=== PATIENT | female | born 1975 | race Caucasian/White ===

== ENCOUNTER → 2016-06-27 | Outpatient (CLI) | payer OTHER ==
--- NOTE | 2016-06-27 10:53 | MA ---
Screening Digital Mammogram Clinical Indications: Routine screening. Technique: Standard cephalocaudal and mediolateral oblique projections are obtained. This examinati on is processed by the [employer] computer aided detection system. Comparison: May 2015 and October 2010 (right) Breast density: B; There are scattered fibroglandular densities. Findings: CAD was reviewed. No suspicious findings are identified. Impression: Negative mammogram. . BI-RADS 1. Recommendation: Routine screening is recommended in one year. [facility] will send a result letter to the patient. Negative mammography should not preclude additional workup of a clinically suspicious finding. The patient's information is entered into a reminder system with a target due date for her next mammo gram.
== END ==
LOC: BMCIMAGING 09:41
DX: Z12.31 Encounter for screening mammogram for malignant neoplasm of breast (principal)
CPT/HCPCS: G0202

== ENCOUNTER → 2017-02-08 | Outpatient (CLI) | payer OTHER | LOC: FIMAGING 09:34 | PROVIDERS: ATTEND Obstetrics & Gynecology | DX: N92.0 Excessive and frequent menstruation with regular cycle (principal) ==

== ENCOUNTER 2017-08-27 12:26 | Observation (INO) | payer OTHER ==
[2017-08-27] MEDS ORDERED: IBUPROFEN 600 MG TAB PO ONE (13:07)
--- NOTE | 2017-08-27 13:15 | EDPHY ---
H & P Time Seen by Provider: 08/27/17 13:14 HPI/ROS: Chief complaint. Syncope, vaginal bleeding HPI. 41-year-old female here by 911. She had a scheduled D and C for a 10 week termination of this morning. She was feeling well prior to the D and C. Apparently the geriatric case manager told her that was a difficult D&C and that there was placental tissue that could not be detached. The patient felt fine afterwards and had only slight light bleeding. About an hour and half later she was at home passed a large clot and then large gush gush of blood. She was lightheaded and laid on the bathroom floor and had to crawl to the porch to call 911. She possibly lost consciousness briefly. She had no chest pain or shortness of breath. She has continued to have large vaginal bleeding with 2 episodes in the emergency department. She has lower abdominal cramping and pain. Patient is 4/para 3, AB1 ROS Constitutional. Generalized weakness Eyes. no problems with vision ENT. no sore throat, no nasal drainage Cardiovascular. no chest pain Respiratory. no shortness of breath, no cough Abdominal. Lower abdominal pain and vaginal bleeding . no problems urinating MS. no calf pain/swelling, no neck/back pain, no joint pain Skin. no rash Lymph. no swollen glands Neuro. Syncope Past Medical/Surgical History: D&C, dental surgery, SVT Social History: , nonsmoker, no alcohol Smoking Status: Never smoked Physical Exam: General Appearance: Alert pleasant well-developed female moderate distress vital signs are stable Eyes: Pupils equal and round no pallor or injection. ENT, Mouth: Mucous membranes are moist. Respiratory: There are no retractions, lungs are clear to auscultation. Cardiovascular: Regular rate and rhythm. Gastrointestinal: Abdomen is soft with suprapubic tenderness. It feels that the bladder uterus area is quite firm and tender. It is also painful to palpation Neurological: Awake and alert, sensory and motor exams grossly normal. Skin: Warm and dry, no rashes. Musculoskeletal: Neck is supple nontender. Extremities symmetrical, full range of motion. Psychiatric: Patient is oriented X 3, there is no agitation. Constitutional: Initial Vital Signs Temperature (C) 36.8 C 08/27/17 12:28 Heart Rate 80 08/27/17 12:28 Respiratory Rate 18 08/27/17 12:28 Blood Pressure 114/69 08/27/17 12:28 O2 Sat (%) 100 08/27/17 12:28 O2 Delivery Mode Room Air Allergies/Adverse Reactions: hydrocodone Allergy (Verified 08/27/17 15:42) Other-Enter Comments Penicillins Allergy (Verified 08/27/17 15:42) Hives Home Medications: Medication Instructions Recorded NK [No Known Home Meds] 06/20/14 Medical Decision Making - Diagnostics Imaging Results: Imaging Impressions Pelvic/Renal Ultrasound 08/27/17 13:37 Impression: 1. Diffusely heterogenous abnormal endometrial thickening up to 7 x 7 cm likely representing nonvascular hemorrhage. 2. No definite vascular retained products of conception. 3. Ovaries not identified. Findings and recommendations discussed with Emergency Department physician, Mark Leone at 1455 hour, 08/27/2017. Final report concurs with initial preliminary interpretation. Ultrasound showed a heterogeneous abnormal endometrial thickening up to 7 cm thick. Likely representing hemorrhage. Procedures: IV normal saline, monitor. Blood work and type and screen. ED Course/Re-evaluation: I have consulted and discussed the case with Dr. Fournier twice for OBGYN. She does not have privileges at [facility]. She requests that I call Dr. Swanson who is the director business management software test automation engineer. Repeat H&H is pending. Repeat crit is 30.2. Dr. Fournier sees the patient in the emergency department. I consulted and discussed the case with Dr. Swanson who agrees to the admission and asked the patient be admitted to labor and agree. Differential Diagnosis: Patient a D and C this morning and this having vaginal bleeding with significant blood loss and declining hematocrit. Ultrasound shows a very thick endometrium that requires another D and C. The cause of this is not clear to me currently. - Data Points Laboratory Results: Laboratory Results 08/27/17 14:42 08/27/17 12:25 08/27/17 08/27/17 08/27/17 14:42 13:28 12:25 WBC 14.51 10^3/uL H 10^3/uL (3.80-9.50) RBC 3.22 10^6/uL L 10^6/uL (4.18-5.33) Hgb 10.5 g/dL L g/dL (12.6-16.3) Hct 30.2 % L % (38.0-47.0) MCV 93.8 fL fL (81.5-99.8) MCH 32.6 pg pg (27.9-34.1) MCHC 34.8 g/dL g/dL (32.4-36.7) RDW 12.7 % % (11.5-15.2) Plt Count 185 10^3/uL 10^3/uL (150-400) MPV 10.9 fL fL (8.7-11.7) Neut % (Auto) 86.1 % H % (39.3-74.2) Lymph % (Auto) 8.5 % L % (15.0-45.0) [place] % (Auto) 4.8 % % (4.5-13.0) Eos % (Auto) 0.1 % L % (0.6-7.6) Baso % (Auto) 0.1 % L % (0.3-1.7) Nucleat RBC Rel Count 0.0 % % (0.0-0.2) Absolute Neuts (auto) 12.48 10^3/uL H 10^3/uL (1.70-6.50) Absolute Lymphs (auto) 1.24 10^3/uL 10^3/uL (1.00-3.00) Absolute Monos (auto) 0.70 10^3/uL 10^3/uL (0.30-0.80) Absolute Eos (auto) 0.01 10^3/uL L 10^3/uL (0.03-0.40) Absolute Basos (auto) 0.02 10^3/uL 10^3/uL (0.02-0.10) Absolute Nucleated RBC 0.00 10^3/uL 10^3/uL (0-0.01) Immature Gran % 0.4 % % (0.0-1.1) Immature Gran # 0.06 10^3/uL 10^3/uL (0.00-0.10) PT INR APTT Sodium 136 mEq/L mEq/L (135-145) Potassium 3.9 mEq/L mEq/L (3.5-5.2) Chloride 104 mEq/L mEq/L (97-110) Carbon Dioxide 23 mEq/l mEq/l (22-31) Anion Gap 9 mEq/L mEq/L (8-16) BUN 7 mg/dL mg/dL (7-23) Creatinine 0.5 mg/dL L mg/dL (0.6-1.0) Estimated GFR > 60 Glucose 66 mg/dL L mg/dL (70-100) Calcium 8.8 mg/dL mg/dL (8.5-10.4) Patient ABO/Rh O POSITIVE Antibody Screen NEGATIVE 08/27/17 08/27/17 12:25 12:25 WBC 11.41 10^3/uL H 10^3/uL (3.80-9.50) RBC 3.74 10^6/uL L 10^6/uL (4.18-5.33) Hgb 12.0 g/dL L g/dL (12.6-16.3) Hct 35.0 % L % (38.0-47.0) MCV 93.6 fL fL (81.5-99.8) MCH 32.1 pg pg (27.9-34.1) MCHC 34.3 g/dL g/dL (32.4-36.7) RDW 12.9 % % (11.5-15.2) Plt Count 199 10^3/uL 10^3/uL (150-400) MPV 10.9 fL fL (8.7-11.7) Neut % (Auto) 78.1 % H % (39.3-74.2) Lymph % (Auto) 15.2 % % (15.0-45.0) [place] % (Auto) 5.7 % % (4.5-13.0) Eos % (Auto) 0.3 % L % (0.6-7.6) Baso % (Auto) 0.3 % % (0.3-1.7) Nucleat RBC Rel Count 0.0 % % (0.0-0.2) Absolute Neuts (auto) 8.92 10^3/uL H 10^3/uL (1.70-6.50) Absolute Lymphs (auto) 1.74 10^3/uL 10^3/uL (1.00-3.00) Absolute Monos (auto) 0.65 10^3/uL 10^3/uL (0.30-0.80) Absolute Eos (auto) 0.03 10^3/uL 10^3/uL (0.03-0.40) Absolute Basos (auto) 0.03 10^3/uL 10^3/uL (0.02-0.10) Absolute Nucleated RBC 0.00 10^3/uL 10^3/uL (0-0.01) Immature Gran % 0.4 % % (0.0-1.1) Immature Gran # 0.04 10^3/uL 10^3/uL (0.00-0.10) PT 14.6 SEC SEC (12.0-15.0) INR 1.12 (0.83-1.16) APTT 25.1 SEC SEC (23.0-38.0) Sodium Potassium Chloride Carbon Dioxide Anion Gap BUN Creatinine Estimated GFR Glucose Calcium Patient ABO/Rh Antibody Screen Medications Given: Discontinued Medications Sodium Chloride (Ns) 1,000 mls @ 0 mls/hr IV EDNOW ONE; Wide Open PRN Reason: Protocol Stop: 08/27/17 13:17 Last Admin: 08/27/17 13:49 Dose: 1,000 mls Ibuprofen (Motrin) 600 mg PO EDNOW ONE Stop: 08/27/17 13:08 Last Admin: 08/27/17 13:13 Dose: 600 mg Departure - Departure Disposition: [facility] Acute Clinical Impression: Vaginal bleeding Condition: Fair
[2017-08-27] MEDS ORDERED: NS 1,000 ML IV ONE (13:16)
[2017-08-27 13:23] LABS: PLATELET COUNT 199 10^3/uL (150-400)
[2017-08-27 13:29] LABS: INR 1.12 (0.83-1.16); PROTIME(PATIENT) 14.6 SEC (12.0-15.0)
[2017-08-27 15:21] LABS: PLATELET COUNT 185 10^3/uL (150-400)
[2017-08-27 17:21] VITALS: PULSE 71
[2017-08-27] MEDS ORDERED: MISOPROSTOL 200 MCG TAB ONE (17:48)
[2017-08-27] MEDS: LR 1,000 ML IV SCH (18:11)
[2017-08-27] MEDS: MISOPROSTOL 200 MCG TAB PO PRN (18:29)
[2017-08-27] MEDS ORDERED: fentaNYL 100 MCG/2 ML INJ IVP PRN (18:55)
[2017-08-27] MEDS: ONDANSETRON 4 MG/2 ML VIAL IVP PRN ×2 (19:01→23:50)
[2017-08-27] MEDS: fentaNYL 100 MCG/2 ML INJ IVP PRN ×2 (20:25→23:25)
--- NOTE | 2017-08-27 21:59 | GHP ---
[f rep st] PREOP HISTORY AND PHYSICAL DATE OF ADMISSION: 08/27/2017 HISTORY UPON PRESENTATION: The patient is a 41-year-old white female who was admitted through the em ergency room due to increased pain with heavy bleeding and near-syncopal event, status post an electi ve termination of a at 10 weeks' gestation done by [facility] earlier this morn ing in their office. The patient reports that the procedure by Dr. Sherman lasted approximately 45 min utes with excessive suctioning and manipulation because the patient was told that her cervix was so o pen that Dr. Sherman had difficulty having the suction machine work. The patient then was felt to be s table and was discharged home after which she began having heavy bleeding and significant pain. She was near-syncopal and presented to the emergency room. The patient was watched for several hours dur ing which time her hematocrit fell from 35% down to 30%. The patient had an ultrasound performed maria g t showed a 7 cm thickened endometrial cavity with heterogeneous tissue with no obvious retained produ cts of conception, however, difficult to totally rule out versus organized clot. There was no free f luid. The patient was hemodynamically stable but did have several episodes of very heavy bleeding. The patient was admitted to Labor and Delivery for possible D and C. The patient is thoroughly couns eled about the potential for a small amount of retained tissue causing persistent bleeding versus a l ow-toned uterus that is just harboring bigger clots. The patient is advised that a repeat D and C is most efficiently going to remove the clot and assess for any retained tissue. However, it does agai n pose a potential risk for scarring in the uterus with low risk of Asherman syndrome. The patient d oes not desire future fertility. She is concerned by the longer procedure this morning and the risk from that. The patient is given additional option of using Cytotec to try to help her uterus pass th e clot/tissue and improve the uterine tone. The patient did use Cytotec to resolve a missed AB with 1 and was successful. The patient hopes to stay in the hospital for pain management and pr oceed with trying the Cytotec. PAST MEDICAL HISTORY: The patient has a history of SVT for which she has had a cardiology consult an d is seeing Dr. Meeks. He has advised her to proceed with an ablation but has not done so. The patien t denies any other medical problems. PAST SURGICAL HISTORY: Only the above D and C this morning. PAST OBSTETRIC HISTORY: The patient had 3 vaginal deliveries of term healthy children ages 12; 10; a nd 7. The patient reports 3 losses with 2 spontaneous ABs in the 1st trimester and 1 pregn lam that was a missed AB that was managed with Cytotec with complete resolution. The patient had a 10-week intrauterine for which she was proceeding with an elective termination this morning . ALLERGIES: The patient has significant projectile vomiting with hydrocodone. Penicillin causes rash and vomiting and diarrhea. CURRENT MEDICATIONS: The patient had been doing vitamins. She also used doxycycline last n ight and this morning. She was given a Xanax this morning. No other long-term medications. SOCIAL HISTORY: The patient is and has a supportive with her here. She lives with h er 3 children. The patient is a nonsmoker. No alcohol or drug use. PHYSICAL EXAMINATION: GENERAL: Upon admission, the patient is a well-developed, well-nourished whit e female in minimal distress. The patient is describing pressure and cramping 4 to 5 out of 10. VIA L SIGNS: The patient's blood pressure is 109/67, temperature 36.7 upon admission to Labor and Delive . LUNGS: Clear to auscultation bilaterally. CARDIOVASCULAR: Regular rate and rhythm. ABDOMEN: Soft and only mildly tender. PELVIC: Not done initially upon admission to Labor and Delivery. EXT REMITIES: Nontender. No edema. ASSESSMENT: Bleeding and pain, status post an elective termination at 10 weeks with concern for murali ined clot versus retained products of conception. Anemia with heavy blood loss today. PLAN: We will proceed with 800 mcg of Cytotec every 3 hours with a max of 3 doses. The patient know s that she will have a strong intensity of pain and is offered IV narcotics versus nitrous. If the p atient does not have good results or is becoming unstable, she understands she might need to proceed with another D and C. /[id number]/MODL
[2017-08-27] MEDS: MISOPROSTOL 200 MCG TAB VG PRN (23:46)
--- NOTE | 2017-08-28 00:02 | SOAPPROG ---
SOAP Progress Note Assessment/Plan: Assessment: s/p TAB this am. bldr scant cont giving 800 mcg q 3 hrs to express change Plan: cont cytotec and pain meds throughtout. 08/27/17 23:58 Subjective: Pt having 7-8/10 pains. No bld essentially - did u/s and clot now 7x9 cms. Did hope of heavy bld. Disappointed cx closed Objective: Vital Signs Temp Pulse Resp BP Pulse Ox 38.2 C 71 16 107/59 L 98 08/27/17 23:16 08/27/17 16:59 08/27/17 23:16 08/27/17 23:16 08/27/17 20:00 08/26/17 08/27/17 08/28/17 05:59 05:59 05:59 Intake Total 1000 Balance 1000 PT 14.6 SEC (12.0-15.0) 08/27/17 12:25 INR 1.12 (0.83-1.16) 08/27/17 12:25 Physical Exam - Physical Exam General Appearance: WD/WN Abdomen: non-tender, soft Pelvic Exam: other (cx int os ft/50, no bld) ICD10 Worksheet Patient Problems: Problems Problem Status Onset Incomplete Acute Vaginal bleeding Acute
[2017-08-28] MEDS: ACETAMINOPHEN 500 MG TAB PO PRN ×2 (00:13→05:40)
[2017-08-28] MEDS: LR 1,000 ML IV SCH (01:42)
[2017-08-28] MEDS: fentaNYL 100 MCG/2 ML INJ IVP PRN ×2 (02:52→04:59)
[2017-08-28] MEDS: MISOPROSTOL 200 MCG TAB PO PRN (02:55)
[2017-08-28] MEDS: MISOPROSTOL 200 MCG TAB VG PRN (02:59)
[2017-08-28] MEDS ORDERED: AMMONIA AROMATIC 1 EACH AMP IH ONE (04:37)
[2017-08-28] MEDS: ONDANSETRON 4 MG/2 ML VIAL IVP PRN (04:43)
[2017-08-28] MEDS ORDERED: MISOPROSTOL 200 MCG TAB PO ONE (05:15)
--- NOTE | 2017-08-28 06:32 | SOAPPROG ---
SOAP Progress Note Assessment/Plan: Assessment: s/p TAB with retained tissue/clot Had good result of passage of large clot approx 5 am with light-headedness u/s shows much smaller clot area 2x3 cm - concern for small POCs approx 2 cm Plan: Pt wants to try 1 more dose of cytotec for cont tone of uterus - inadvertently took orally rather than SL CBC done shortly after clots and h/h dropped to 02/20....pt VS stable 08/27/17 23:58 08/28/17 06:28 Subjective: Pt feeling better and much less tenderness to uterus after passage of clots - almost no cramping..... large clot in toilet already flushed and smaller clots on chux. [place] release of clot and got up to BR and became lightheaded. U/S done and only residual 2x3 cm clot noted but in upper EC small fluid collection and 2 cm area concerning for RPOCs. pt stable now Objective: Vital Signs Temp Pulse Resp BP Pulse Ox 38.0 C 71 20 120/71 97 08/28/17 04:54 08/27/17 16:59 08/28/17 04:31 08/28/17 06:02 08/28/17 05:45 Laboratory Results 08/28/17 05:28 08/27/17 08/28/17 08/29/17 05:59 05:59 05:59 Intake Total 1000 Balance 1000 PT 14.6 SEC (12.0-15.0) 08/27/17 12:25 INR 1.12 (0.83-1.16) 08/27/17 12:25 Physical Exam - Physical Exam General Appearance: WD/WN, alert Abdomen: non-tender, soft Pelvic Exam: vaginal bleeding (light now, est large clot from toilet --?2-300 cc ) ICD10 Worksheet Patient Problems: Problems Problem Status Onset Incomplete Acute Vaginal bleeding Acute
--- NOTE | 2017-08-28 09:01 | PDANEPAE ---
ANE Past Medical History - Pulmonary History Hx Oxygen in Use at Home: No - Endocrine History Hx Diabetes: No ANE Review of Systems Review of Systems: ANE Patient History - Allergies Allergies/Adverse Reactions: hydrocodone Allergy (Verified 08/27/17 15:42) Other-Enter Comments Penicillins Allergy (Verified 08/27/17 15:42) Hives - Home Medications Home Medications: NK [No Known Home Meds] 06/20/14 [Last Taken Unknown] - NPO status NPO Since - Liquids (Date): 08/27/17 NPO Since - Liquids (Time): 16:00 NPO Since - Solids (Date): 08/27/17 NPO Since - Solids (Time): 10:00 - Smoking Hx Smoking Status: Never smoked ANE Labs/Vital Signs - Labs Result Diagrams: 08/28/17 05:28 08/27/17 12:25 - Vital Signs Blood Pressure: 98/57 Heart Rate: 71 Respiratory Rate: 20 O2 Sat (%): 97 Height: 165.1 cm Weight: 58.967 kg ANE Physical Exam - Airway Neck exam: FROM Mallampati Score: Class 1 Mouth exam: normal dental/mouth exam - Pulmonary Pulmonary: no respiratory distress - Cardiovascular Cardiovascular: regular rate and rhythym - ASA Status ASA Status: I ANE Anesthesia Plan Total IV Anesthesia: Yes
[2017-08-28] MEDS ORDERED: MIDAZOLAM 2 MG/2 ML VIAL ONE (09:03)
[2017-08-28] MEDS ORDERED: PROPOFOL/EMULSION 500 MG/50 ML BOTTLE IV ONE (09:04)
[2017-08-28] MEDS ORDERED: fentaNYL 100 MCG/2 ML INJ ONE (09:04)
[2017-08-28] MEDS ORDERED: ceFAZolin 2 GM in NS 100 ML IV ONE (09:04)
[2017-08-28] MEDS ORDERED: METOCLOPRAMIDE 10 MG/2 ML VIAL ONE (09:05)
[2017-08-28] MEDS ORDERED: LIDOCAINE 2% 100 MG/5 ML SYR ONE (09:05)
[2017-08-28] MEDS ORDERED: DEXAMETHASONE 4 MG/ML VIAL ONE (09:05)
[2017-08-28] MEDS ORDERED: ONDANSETRON 4 MG/2 ML VIAL ONE (09:05)
[2017-08-28 09:11] VITALS: RESP 18
[2017-08-28] MEDS ORDERED: ceFAZolin 2 GM/SWFI 2 GM/20 ML SYR IVP ONE (09:30)
--- NOTE | 2017-08-28 10:04 | POSTOPPROG ---
Post Op Note Date of Operation: 08/28/17 Surgeon: Florecita Guerra Anesthesiologist: Dr. Darrell Whatley Anesthesia: GET(General Endotracheal) Pre-op Diagnosis: incomplete Post-op Diagnosis: same Procedure: suction dilation and currettage under ultrasound guidance Inf/Abcess present in the surg proc area at time of surgery?: No Depth: Organ Space EBL: Minimal Complications: none Specimen(s): products of conception
[2017-08-28] MEDS ORDERED: ALBUTEROL 3 ML DEYVIAL IH PRN (10:15)
[2017-08-28] MEDS ORDERED: NALOXONE HCL 0.4 MG/ML INJ IVP PRN (10:15)
--- NOTE | 2017-08-28 10:19 | POSTANESTH ---
Post Anesthetic Evaluation Cardiovascular Status: Normal, Stable, Similar to Pre-Op Cond Respiratory Status: Similar to Pre-op Cond. Level of Consciousness/Mental Status: Mildly Sleepy, Arousable Pain Control: Adequate, Prn Tx Ordered Nausea/Vomiting Control: Adequate, Prn Tx Ordered Complications Possibly Related to Anesthesia: None Noted
[2017-08-28] MEDS ORDERED: IBUPROFEN 600 MG TAB PO SCH (12:00)
[2017-08-28 13:40] VITALS: BP 106/61; O2SAT 95
[2017-08-28 14:40] VITALS: TEMP 98.4
--- NOTE | 2017-08-28 16:39 | GOP ---
[f rep st] OPERATIVE REPORT DATE OF OPERATION: 08/28/2017 SURGEON: Florecita Guerra MD ANESTHESIA: General. ANESTHESIOLOGIST: Darrell Whatley MD. PREOPERATIVE DIAGNOSIS: Incomplete at 10 weeks. POSTOPERATIVE DIAGNOSIS: Incomplete at 10 weeks. PROCEDURE PERFORMED: Suction, dilation, and curettage under ultrasound guidance. FINDINGS: ESTIMATED BLOOD LOSS: For the procedure was less than 20 mL. DESCRIPTION OF PROCEDURE: Patient was taken to the operating room where she was placed under general anesthesia and placed in the dorsal lithotomy position. A transvaginal ultrasound performed under g eneral anesthesia revealed an area of tissue and possible gestational sac at the fundus with no obvio us large blood clot persisting. After WHO time-out was performed, an open-sided speculum was placed in the vagina, and an atraumatic tenaculum was used to grasp the anterior lip of the cervix. The [place] doni sounded to 11 cm. A #9 curved suction curette was gently advanced from the cervix to the fundus. Suction was applied and a large amount of tissue was obtained with a couple passes of the suction d evice. This was performed with transabdominal ultrasound guidance; the tissue was removed, and the e ndometrium was intact. Sharp curettage was then performed in a clockwise fashion, also under ultraso und guidance, until a gritty texture was palpated throughout the entire endometrium and no tissue was visualized abdominally. One final pass of the suction revealed no further bleeding and no further t issue. The tenaculum and the speculum were removed. A transvaginal ultrasound was performed, and a thin endometrial stripe was visualized from the cervix to the fundus; no further tissue nor bleeding were noted, and there was no bleeding at the level of the cervix. Patient tolerated the procedure we ll. Sponge, lap, needle, and instrument counts were correct x2. Patient went to the recovery room i n good condition. INDICATION FOR PROCEDURE: The patient is a 41-year-old, 7, para 3, who was admitted through the emergency room complaining of increased pain, heavy bleeding, and a near syncopal event. She had an elective termination of at 10 weeks' gestation earlier on the day of the at [facility], performed by Dr. Corrie Fournier. The procedure lasted approximately 45 minutes with e xcessive suctioning and manipulation. The patient was discharged home, and she began having heavy bl eeding, significant pain, and presyncopal event. Upon presentation to the [facility], she had an ultrasound which revealed a large (approximately 7 cm) blood clot and tissue visualiz ed present at the os. Patient was recommended to have a repeat suction, dilation, and curettage, and initially patient declined and wished to have medical management with oral Cytotec to try to evacuat e her clot and the tissue that was retained in the uterus. [facility] She received a total of 4 doses of 800 of oral Cytotec every 3 hours, and she passed multiple c lots, but never obvious tissue. Repeat ultrasound in the morning revealed retained tissue in the [place] don[place], and patient continued to have bleeding. At that point, patient was continued to recommend a suc tion, dilation, and curettage, and patient consented. She understood the risks and benefits with the risks including bleeding, infection, damage to the uterus, including possible risk of perforation, d amage to other organs if perforation were to occur, risk of incomplete removal of the tissue with nee d for a spontaneous expulsion and/or repeat procedure, and compromise of future fertility and possibi lity of scar. She understood these risks and benefits and agreed to proceed. FLUID REPLACEMENT: 600 mL. URINE OUTPUT: Not measured. PATHOLOGIC SPECIMEN: Products of conception. /[id number]/MODL
[2017-08-28] MEDS ORDERED: IRON POLYSAC/IRON HEME 28 MG TAB PO SCH (21:00)
== END 2017-08-28 14:00 | disposition home or self-care (01) ==
LOC: EDUNIT# → INTOOBSV 15:24 → FLD 16:35
PROVIDERS: ADMIT Obstetrics & Gynecology; ATTEND Obstetrics & Gynecology
PROC: 10D17ZZ Extraction of Products of Conception, Retained, Via Natural or Artificial Opening (ICD-10-PCS; principal; 2017-08-27)
DX: O03.4 Incomplete spontaneous abortion without complication (principal); E86.9 Volume depletion, unspecified; I47.1 Supraventricular tachycardia; Z88.0 Allergy status to penicillin
CPT/HCPCS: 59812; 76856; 96360; 99285; G0378; J0690; J1100; J2001; J2250; J2405; J2704; J2765; J3010